=== PATIENT | male | born 2000 | race Caucasian/White ===

== ENCOUNTER 2024-01-26 20:42 | Inpatient (IN) | payer OTHER ==
[~2024-01-26] VITALS: Ht 170.2 cm; Wt 85.9 kg
[2024-01-26] MEDS ORDERED: DAILTAB65 PO (21:31)
[2024-01-26] MEDS ORDERED: D-20TAB PO (22:03)
[2024-01-26] MEDS ORDERED: MULT-40 PO (22:03)
[2024-01-26] MEDS ORDERED: HOME MED LIST COMPLETE! XX SCH (22:05)
[2024-01-26 22:14] LABS: AMPHETAMINES LEVEL URINE NEGATIVE (NEGATIVE); BARBITURATES URINE NEGATIVE (NEGATIVE); BENZODIAZEPINES URINE NEGATIVE (NEGATIVE); CANNABINOIDS URINE NEGATIVE (NEGATIVE); COCAINE METABOLITE URINE NEGATIVE (NEGATIVE); METHADONE URINE NEGATIVE (NEGATIVE); OPIATES URINE NEGATIVE (NEGATIVE); PHENCYCLIDINE URINE NEGATIVE (NEGATIVE)
[2024-01-26 22:15] LABS: HEMATOCRIT 46.6 % (42.0-52.0); HEMOGLOBIN 16.1 g/dl (13.5-17.5); MEAN CORPUSCULAR HEMOGLOBIN 28.9 pg (27.0-33.0); MEAN CORPUSCULAR HGB CONC 34.5 g/dl (32.0-36.5); MEAN CORPUSCULAR VOLUME 83.7 fl (80.0-96.0); PLATELET COUNT, AUTOMATED 264 10^3/uL (150-450); RED BLOOD COUNT 5.57 10^6/uL (4.30-6.10); WHITE BLOOD COUNT 8.7 10^3/uL (4.0-10.0)
[2024-01-26 22:16] LABS: ETHYL ALCOHOL (ETHANOL) < 0.003 % (0.000-0.010)
[2024-01-26 22:17] LABS: SALICYLATE LEVEL < 3.0 MG/DL (<30)
[2024-01-26 22:18] LABS: ALBUMIN 4.5 G/DL (3.2-5.2); ALKALINE PHOSPHATASE 69 U/L (46-116); ALT/SGPT 29 U/L (7.0-40); AST/SGOT 26 U/L (<34); BILIRUBIN,DIRECT 0.5 MG/DL (<0.4); BILIRUBIN,TOTAL 1.3 MG/DL (0.3-1.2); BLOOD UREA NITROGEN 17 MG/DL (9-23); CALCIUM LEVEL 9.9 MG/DL (8.5-10.1); CARBON DIOXIDE LEVEL 27 MMOL/L (20-31); CHLORIDE LEVEL 104 MMOL/L (98-107); CREATININE FOR GFR 0.88 MG/DL (0.70-1.30); GLOMERULAR FILTRATION RATE > 60.0 (>60); GLUCOSE, FASTING 91 MG/DL (60-100); POTASSIUM SERUM 4.3 MMOL/L (3.5-5.1); SODIUM LEVEL 139 MMOL/L (136-145); TOTAL PROTEIN 7.8 G/DL (5.7-8.2)
[2024-01-26 22:20] LABS: THYROID STIMULATING HORMONE 2.414 uIU/ML (0.55-4.78)
[2024-01-27] MEDS ORDERED: traZODone 50 MG TAB PO PRN (01:55)
[2024-01-27] MEDS ORDERED: MAALOX 30 ML SUSP *UDC PO PRN (01:55)
[2024-01-27] MEDS ORDERED: diphenhydrAMINE 25MG CAP PO PRN (01:55)
[2024-01-27] MEDS ORDERED: MOM 30ML SUSPENSION UDC PO PRN (01:55)
[2024-01-27] MEDS ORDERED: IBUPROFEN 400MG TAB PO PRN (01:55)
[2024-01-27 02:33] VITALS: BP 124/71; TEMP 97.4; O2SAT 100
[2024-01-27 06:58] VITALS: BP 127/51; TEMP 97.8; O2SAT 96
[2024-01-27] MEDS: ACETAMINOPHEN TAB 650MG DOSE (2X325MG) PO PRN (12:29)
[2024-01-27 18:44] VITALS: BP 144/81; TEMP 98.1
[2024-01-28 06:33] VITALS: BP 146/67; TEMP 97.2; O2SAT 99
[2024-01-28 18:18] VITALS: BP 145/78; TEMP 98.2
[2024-01-29 06:28] VITALS: BP 153/74; TEMP 97.6; O2SAT 100
[2024-01-29 18:28] VITALS: BP 131/82; TEMP 98.4
[2024-01-30 06:42] VITALS: BP 133/63; TEMP 97.5; O2SAT 99
== END 2024-01-30 10:59 | disposition home or self-care (01) | DRG 881 ==
LOC: M ED 20:42 → M PSY 01-27 01:55
PROVIDERS: ADMIT Student in an Organized Health Care Education/Training Program; ATTEND Student in an Organized Health Care Education/Training Program
DX: F34.1 Dysthymic disorder (principal); R45.851 Suicidal ideations; F41.9 Anxiety disorder, unspecified; Z91.51 Personal history of suicidal behavior; Z81.8 Family history of other mental and behavioral disorders; Z81.1 Family history of alcohol abuse and dependence